=== PATIENT | male | born 1970 | race Caucasian/White ===

== ENCOUNTER 2017-12-24 19:11 | Emergency (ER) | payer OTHER ==
[~2017-12-24] VITALS: Ht 193 cm; Wt 91.2 kg
[~2017-12-24 19:11] MED LIST: POLYMYXIN B/TMP10 ML OP
[2017-12-24] MEDS ORDERED: KEFLEX500 M2 PO (20:06)
[2017-12-24 20:11] VITALS: BP 124/79
== END 2017-12-24 20:12 | disposition home or self-care (01) ==
LOC: M.ERS 19:11
DX: S61.412A Laceration without foreign body of left hand, initial encounter (principal); F17.200 Nicotine dependence, unspecified, uncomplicated; Z88.2 Allergy status to sulfonamides; W20.8XXA Other cause of strike by thrown, projected or falling object, initial encounter; Y93.89 Activity, other specified; Y92.89 Other specified places as the place of occurrence of the external cause; Y99.8 Other external cause status